=== PATIENT | female | born 1970 | race Caucasian/White ===

== ENCOUNTER → 2024-05-21 07:50 | Outpatient (REF) | payer OTHER, SELFPAY | LOC: HWWDC 07:50 | PROVIDERS: ATTENDING PHYSICIAN Nurse Practitioner Family | DX: Z12.31 Encounter for screening mammogram for malignant neoplasm of breast (principal) | CPT/HCPCS: 77063; 77067 ==

== ENCOUNTER → 2025-07-16 15:31 | Outpatient (REF) | payer BC, SELFPAY | LOC: HWWDC 15:31 | PROVIDERS: ATTENDING PHYSICIAN Obstetrics & Gynecology | DX: Z12.31 Encounter for screening mammogram for malignant neoplasm of breast (principal) | CPT/HCPCS: 77063; 77067 ==